=== PATIENT | male | born 2000 | race Caucasian/White ===

== ENCOUNTER 2024-02-13 08:00 | Outpatient (RCR) | payer OTHER, SELFPAY ==
--- NOTE | 2024-02-13 10:15 | BH.SGPN.GN ---
Behaviors/Verbalizations/Mental Status: [] Eye contact is good. Motor activity is appropriate. Appearance is casual. Speech is Appropriate. Mood is anxious, depressed. Affect is congruent. Thoughts are linear and logical. No evidence of psychosis. Client Response/Progress/Benefit: [] Pt receptive of session, actively engaged throughout AEB taking notes, providing input, and contributing in small group discussion. Appeared to connect with group topic of automatic thoughts and cognitive distortions, as well as the impact of thought patterns on mental health, coping behaviors, and relationships. This particular group is very heavy on psychoeducation and pt appeared to connect with distortions and how they can impact functioning. Identified struggling with disqualifying the positive and mental filter distortions. Pt appeared to benefit from gaining insight on distorted thinking patterns and how this impacts overall mental health. Will continue IOP to stabilize mood, improve ability to function, and prevent decompensation. Narrative Note: []
--- NOTE | 2024-02-13 11:15 | BH.SGPN.GN ---
Behaviors/Verbalizations/Mental Status: []Pt alert and oriented, casually dressed and groomed. Eye contact fair. Motor activity appropriate. Speech within normal limits. Affect constricted, mood dysthymic. Thoughts linear, logical, no signs of hallucinations or delusions. Client Response/Progress/Benefit: [] Pt was an active participant during group discussion. Pt was placed in a smaller group and participated in combatting example distortions with peers. Pt was engaged in the smaller group, participated in group interactions to brainstorm answers, and appeared to be comprehending cognitive distortions. Pt stated could connect with many of the distortions covered in group. Pt stated he has learned from group today sometimes are thoughts are skewed and can make a big impact on own feelings and behaviors. Benefited from gaining further insight and awareness of cognitive distortions as well as practicing ways to reframe and challenge thoughts. Will continue in [facility] tx to improve outlook, increase healthy coping skills, and prevent decompensation.
--- NOTE | 2024-02-13 12:24 | BH.COMM ---
Communication Note Communication with Client Communication Note: Met with patient to complete initial paperwork and risk assessment. Reviewed pre-admission intake. No significant changes. Completed [place] [facility]icide Screening. low to moderate risk. Mediated by recent psych admission. No active SI, plan, or intent. Consulted with Dr. Mcintyre with plan to admit to [facility] with dx F31.9
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
--- NOTE | 2024-02-13 15:36 | BH.MTP ---
Master Treatment Plan Patient Information Program Physician:: Dr. Blanche Mcintyre Primary Therapist:: CHICHO Jensen Psychiatric Diagnoses Psychiatric Diagnoses:: 1. Bipolar 2 disorder (currently depressed) 2. Generalized anxiety disorder 3. Rule out alcohol use disorder Estimated LOS Estimated LOS (in weeks):: 6 Problem/Goal #1 Problem/Goal #1 Stated Goal:: Client will reduce depression, feelings of hopelessness, and low motivation due to Bipolar 2, current depressive episode, through Intensive Outpatient Program. Description of Barriers: Potential barriers include recent alcohol increase prior to starting IOP, limited social support, emotion dysregulation, and distorted thoughts. Functional Impact: The patient is a 23-year-old single, male with a history of bipolar 2 disorder, depression and anxiety who was referred by his mother to the [facility] IOP due to worsening depression for the past 3 or 4 weeks. The patient took a leave of absence from work for the past 2 weeks because he was unable to function at work due to his severe depression. A major stressor is that the patient has a lot of debt from increased spending and past college loans and has been in bankruptcy for the past 2 months. He feels withdrawn from everything, is sleeping about 5 hours a night but takes naps for about 4 hours during the day, down and sad, hopelessness, worthlessness, guilt, anhedonia, decreased appetite, low energy, decreased concentration and passive thoughts of . He also describes episodes of hypomania with the most recent episode in August where he felt on top of the world and spent large amounts of money. He states that 2-3 times a year he gets an episode of hypomania and this has happened about 10 times total in his lifetime and have been going on for about 3 years. He denies suicidal ideation, plan for suicide, homicidal ideation, hallucinations or delusions. He denies any history of self-harm. He is a worrier by nature and avoids socializing sometimes. He denies panic attacks or OCD. He denies any purging or bulimia but he does have a history of anorexia during high school with the lowest weight being about 150 pounds. He has had body image issues since high school but no eating disorder behaviors. He has nightmares on occasion which cause increased anxiety. Objectives Objective #1: Stated Objective: Client will learn and utilize 2-3 healthy coping strategies to manage depressive symptoms, as well as see a reduction in overall depressive sx AEB reduced DSM-5 scores. Interventions: Therapist will utilize CBT techniques to assist client with understanding the connection between thoughts, feelings and behaviors. Education will be provided on behavioral activation. Therapist will assist client in learning internal coping strategies to manage depressive symptoms, along with helping client identify triggers. Discharge Criteria: Client will have achieved this goal when can verbalize and has practiced at least 2 healthy coping strategies that successfully manage depressive symptoms, as well as see a reduction in pt's DSM-5 scores for depression Target Date: 03/30/24 Review Date: 03/07/24 Objective #2: Stated Objective: Client will identify and replace 2-3 negative thinking patterns that reinforce feelings of hopelessness and helplessness. Interventions: Through group and individual therapy sessions client will learn how to identify, challenge, and replace dysfunctional thoughts with positive self-enhancing thoughts. Discharge Criteria: Client will have achieved this goal when can identify at least 2 negative thinking patterns, and replace thoughts with rational thoughts. Target Date: 03/30/24 Review Date: 03/07/24 Problem/Goal #2 Problem/Goal #2 Stated Goal:: Stabilize anxiety level while increasing ability to function on daily basis. Description of Barriers: Potential barriers include recent alcohol increase prior to starting IOP, limited social support, emotion dysregulation, and distorted thoughts. Functional Impact: The patient is a 23-year-old single, male with a history of bipolar 2 disorder, depression and anxiety who was referred by his mother to the [facility] IOP due to worsening depression for the past 3 or 4 weeks. The patient took a leave of absence from work for the past 2 weeks because he was unable to function at work due to his severe depression. A major stressor is that the patient has a lot of debt from increased spending and past college loans and has been in bankruptcy for the past 2 months. He feels withdrawn from everything, is sleeping about 5 hours a night but takes naps for about 4 hours during the day, down and sad, hopelessness, worthlessness, guilt, anhedonia, decreased appetite, low energy, decreased concentration and passive thoughts of . He also describes episodes of hypomania with the most recent episode in August where he felt on top of the world and spent large amounts of money. He states that 2-3 times a year he gets an episode of hypomania and this has happened about 10 times total in his lifetime and have been going on for about 3 years. He denies suicidal ideation, plan for suicide, homicidal ideation, hallucinations or delusions. He denies any history of self-harm. He is a worrier by nature and avoids socializing sometimes. He denies panic attacks or OCD. He denies any purging or bulimia but he does have a history of anorexia during high school with the lowest weight being about 150 pounds. He has had body image issues since high school but no eating disorder behaviors. He has nightmares on occasion which cause increased anxiety. Objectives Objective #1: Stated Objective: Client will identify 2-3 anxiety triggers and 2 coping skills to use when feeling anxious, as well as see a reduction in DSM-5 scores for anxiety. Interventions: Therapist will assist client in exploring what triggers anxiety and teach client coping strategies to effectively manage anxiety symptoms. Discharge Criteria: Client will have met this goal when can identify at least 2 triggers to anxiety and verbalize two healthy ways to cope with feelings of anxiety. Target Date: 03/30/24 Review Date: 03/07/24 Objective #2: Stated Objective: Client will identify 2-3 cognitive distortions that lead to rumination and learn 2-3 ways to manage these thoughts to better manage anxiety as shown by reduced DSM-5 scores for anxiety. Interventions: Therapist will provide education on the most common cognitive distortions and teach client the connection between thoughts, emotions, and feelings. Therapist will assist client in identifying, challenging, and replacing dysfunctional thoughts with positive, more realistic thoughts Discharge Criteria: Pt will be able to identify and begin challenging or replacing distortions that reinforce anxiety. Target Date: 03/30/24 Review Date: 03/07/24
--- NOTE | 2024-02-15 09:00 | BH.SGPN.GN ---
Behaviors/Verbalizations/Mental Status: [] Eye contact good. Motor activity appropriate. Speech within normal limits. Affect congruent, mood depressed. Thoughts linear, logical, no signs of hallucinations or delusions. Reviewed client?s symptom tracker, pt denies SI,?plan, or intent as of 02/15/2024. Client Response/Progress/Benefit: [] Client receptive of session, attentive and willing to process with group. Reports ongoing sx of depression?(3/5) and improving anxiety (1/5) per daily sx tracker. ?Identified mental health ?win as maintaining consistent with his new morning routine, which involves completing the [employer] daily crossword puzzle. Shared this is motivating and challenging which helps to start his day on a productive note. Additional win noted as spending time yesterday doing something hands-on and away from a screen. Described baking bread which he plans to share with his family. Noted this was a nice change compared with some of the other ways he passes time, noting these are often more stagnant activities. Current stressor identified as uncertainty about whether he will return to work or not. Indicated trying to focus on treatment and remind himself he has several weeks to decide on this. Receptive of and appearing to benefit from group support. Recommended continued IOP tx to improve mood stability, promote skill application, well as prevent decompensation. Narrative Note: []
--- NOTE | 2024-02-15 11:10 | BH.SGPN.GN ---
Behaviors/Verbalizations/Mental Status: []Pt alert and oriented, casually dressed and groomed. Eye contact good. Motor activity appropriate. Speech within normal limits. Affect constricted, mood depressed. Thoughts linear, logical, no signs of hallucinations or delusions. Client Response/Progress/Benefit: [] Pt responded well to session, taking notes and participating in worksheet discussion. Pt connected with the discussion on motion vs action steps, and this helped pt learn how to set goals differently. Pt set a goal to decrease tiredness and sleeping too much. Pt identified motion steps including setting an alarm that is out of reach, asking family for support, and having a plan when he wakes up. Pt also made action steps which included turning the lights on when his alarm goes off and staying ?away from my bed.? Appeared to benefit from identifying a small goal to benefit mental health. Pt is to continue IOP to prevent decompensation, gain healthy coping skills, and improve daily functioning. Narrative Note: []
--- NOTE | 2024-02-15 11:20 | BH.NA ---
Physical Data Vital Signs Pulse Rate: 78 Blood Pressure: 135/90 Height/Weight Height: 1.73 m Weight:: 95.254 kg Weight in Pounds: 210.0 lbs Current Medication Compliance Medication Compliance Do you take your medication as prescribed?: Yes Nutritional History Appetite Nutritional Instructions: Describe your appetite:: Fair Additional nutritional information:: Client does report a decrease in his appetite but denies change in weight. Client does have a history of anorexia in high school, but states he has been sure to get enough calories in. Functional Assessment Sleep Pattern Describe any problems with sleeping: Client states he sleeps about 5 hours at a time, but does usually take long naps in the afternoon. Client states he has been sleeping about 12 hours per day total. Sensory/Communication Assess Vision Problems Do you have any vision problems?: Glasses Communication Problems Do you have difficulty understanding what people are saying?: No Medical Problems/History Respiratory Conditions Respiratory: Asthma Pain Assessment Do you have acute or chronic pain?: No Surgical History Surgical History Have you had any surgeries? If so, list type and date:: No Substance Abuse Substance Abuse Please describe substance abuse in the last 30 days:: Client states he drinks usually 3 days per week, 2-3 beers per day. Client denies tobacco, substance or caffeine use. Mental Status Summary Mental Status Significant Findings/Observations on Appearance and Mood:: Client is alert and oriented x 4. Client is casually groomed. Client is cooperative with assessment. Client makes fair eye contact. Client's voice has normal rate and volume. Client has a restricted affect. Client makes logical associations and has normal processing. Client denies delusions/hallucinations. Client denies SI. Suicide Assessment Suicidal Ideation Are you currently or have you been suicidal in the past?: Yes Suicidal Intentional Rating Scale (SIRS): Suicidal thoughts (past) Physician Notification Past Psychiatric History MH Treatment Hx Past Psychiatric Medications:: Prozac - besides the Wellbutrin, Lamictal, Zoloft and Abilify he is currently on Age of first mental health symptoms: Client states he was first on medication for mental health around 16 for depression. Client states he was diagnosed with bipolar disorder around age 19. Describe (age, circumstance, etc) any past hospitalizations: None. Current providers for mental health treatment (counselor, psychiatrist, case management assistant, etc.): psychiatry and counseling via telehealth at [facility] Fall Risk Assessment Age Age: Less than 60 Mental Status Mental Status: Willing & able to ask for assistance when needed Physical Status Physical Status: No problems Impairments Impairments: None Elimination Elimination: Continent AND independent Gait or Balance Gait or Balance: Walks independently Hx of Falls History of falls in the past 6 months: No known history Medications/Substances Psychotropics:: Antidepressants and Antipsychotics Medications/substances used within the past 24 hours or ordered to administer: 1-2 of the medications/substances listed above Total Score Total Points:: 1 RN Summary of Impressions Impressions Recommendations Impressions: Psychiatric Issues: 1. Bipolar 2 disorder (currently depressed) 2. Generalized anxiety disorder 3. Rule out alcohol use disorder Level of Care How do the client's current symptoms and functional deficits support need for this level of care?: Client states he was referred to IOP by his mom for increased depression and anxiety. Client states he feels this episode of depression is worse and lasting longer than episodes he has had in the past. Client reports difficulty doing ADL's due to mental health, anhedonia, and decreased energy. Client reports one big stressor is finances. Client denies SI. IOP will promote gains and prevent further decompensation while providing social support and skills training.
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
--- NOTE | 2024-02-17 09:00 | BH.SGPN.GN ---
Behaviors/Verbalizations/Mental Status: [] Eye contact is good. Motor activity is appropriate. Appearance is casual. Speech is Appropriate. Mood is depressed/anxious. Affect is congruent. Thoughts are linear and logical. No evidence of psychosis. Reviewed daily check in sheet and no reports of suicidal ideations or intent. Client Response/Progress/Benefit: [] Pt participated at times during the group discussion. Attentive. Daily symptom tracker notes 3/5 for depression and /5 for anxiety. Able to identify mental health wins which include accomplishing tasks. Pt shared that he cleaned his room and baked . Utilizing behavioral activation skills such as opposite-action and habit changing which has led to benefits. He shared recent stressors and how they are impacting his thoughts, emotions, and behaviors. Progress noted. Benefited from group support, encouragement, and feedback. Will continue in IOP to prevent decompensation, stabilize mood, and increase healthy coping. Narrative Note: []
--- NOTE | 2024-02-17 10:10 | BH.SGPN.GN ---
Behaviors/Verbalizations/Mental Status: [] Client alert and oriented, casually dressed and groomed. Eye contact good. Motor activity appropriate. Speech within normal limits. Affect congruent, mood euthymic. Thoughts linear, logical, no signs of hallucinations or delusions. Client Response/Progress/Benefit: [] Pt responded well to session AEB sharing and listening attentively to others. Group provided examples of benefits of having social support, including: validation, get assistance, and accountability. Pt also participated in group discussion regarding the barriers to accessing support including examples like: lack of trust, avoidance, and fear of vulnerability. Pt participated in experiential activity illustrating the impact communication, boundaries, and patience play in creating healthy support systems. Pt appeared to benefit from increased knowledge of the benefits of social support and greater self-awareness. Will continue IOP tx amalia ncrease emotional regulation skills, reduce negative self-talk, and improve overall functioning. Narrative Note: []
--- NOTE | 2024-02-17 11:10 | BH.SGPN.GN ---
Behaviors/Verbalizations/Mental Status: [] Client alert and oriented, casually dressed and groomed. Eye contact good. Motor activity appropriate. Speech within normal limits. Affect congruent, mood euthymic. Thoughts linear, logical, no signs of hallucinations or delusions. Client Response/Progress/Benefit: [] pt was an active participant throughout AEB contributing to discussion, providing personal examples, and taking notes. Pt provided input during discussion on the types of support our supports can provide. Pt able to identify current support system and barriers that get in the way of using supports. Pt reported after identifying what type of supports pt receives, pt gained awareness that pt could benefit from more social support. Pt wants to work on reaching out to friends and joining common interest groups. Pt shared this would increase self esteem. Pt seemed to benefit from identifying the type of support pt needs to work on improving. Pt recommended to continue IOP tx to prevent decompensation, reduce isolation, and increase overall functioning. Narrative Note: []
--- NOTE | 2024-02-20 09:00 | BH.SGPN.GN ---
Behaviors/Verbalizations/Mental Status: [] Client alert and oriented, casually dressed and groomed. Eye contact good. Motor activity appropriate. Speech within normal limits. Affect congruent, mood euthymic. Thoughts linear, logical, no signs of hallucinations or delusions. Reviewed client?s symptom tracker, no risk for suicidal ideation, plan, or intent as of 02/20/24 Client Response/Progress/Benefit: [] Client responded well to session, offering ideas to peers and providing encouragement. Client reports feeling calm this morning. Client's wins this morning include getting legal stuff worked that has been going on, taking a weight off of his shoulders. Client also shared starting to play his guitar again which has been a great coping tool for him when dealing with stress. Client indicated that he is still not sure what to do about a job and that is causing some anxious feelings for him. Client appeared to benefit from reflecting on his growth. Client will continue IOP tx as Client continues to struggle with avoidance and negative self talk. Narrative Note: []
--- NOTE | 2024-02-20 10:10 | BH.SGPN.GN ---
Behaviors/Verbalizations/Mental Status: []Eye contact is fair. Motor activity is appropriate. Appearance is causal. Speech is Appropriate. Mood is dysthymic. Affect is constricted. Thoughts are linear and logical. No evidence of psychosis. Client Response/Progress/Benefit: [] Pt was an active participant in group discussion and experiential activity. Attentive during psychoeducation on resilience. Participated during interactive discussion with peers on the definition of resilience. Able to relate experiential activity of group juggle to topics of resilience. Group worked together to identify what can impact one's ability to be resilient which included past experiences, trauma, toxic support system, lack of resources, and current mental/physical health state. Worked well with peers in small group in which they identified factors that contribute to building resilience. Benefited from increased awareness of resilience and the factors that contribute to building resilience. Will continue in IOP to increase consistent use of healthy coping skills, challenge distortions, and prevent decompensation.
--- NOTE | 2024-02-20 11:10 | BH.SGPN.GN ---
Behaviors/Verbalizations/Mental Status: []Pt alert and oriented, neatly dressed and groomed. Eye contact good. Motor activity appropriate. Speech within normal limits. Affect congruent, mood motivated. Thoughts linear, logical, no signs of hallucinations or delusions. Client Response/Progress/Benefit: [] Pt responded well to session AEB completing the resilience worksheet provided. Pt participated in the discussion and worked cooperatively with group to identify strategies to enhance each of the components discussed. Pt reports belief they already use resilience traits of??avoiding seeing crises as insurmountable and keeping things in perspective.? Pt stated they would like to continue to develop resilience trait of ?nurturing a positive view of self and practicing self-care.? Pt seemed to benefit from discussing strategies for improving personal resilience and identifying resilience traits pt already possesses. Will continue IOP tx to prevent decompensation, improve daily functioning, and increase motivation. ??? Narrative Note: []
[2024-02-22 08:42] VITALS: BP 135/90; PULSE 78
--- NOTE | 2024-02-22 09:00 | BH.SGPN.GN ---
Behaviors/Verbalizations/Mental Status: [] Eye contact is good. Motor activity is appropriate. Appearance is casual. Speech is Appropriate. Mood is depressed and anxious. Affect is congruent. Thoughts are linear and logical. No evidence of psychosis. Reviewed daily check in sheet and no reports of suicidal ideations or intent. Client Response/Progress/Benefit: [] Pt participated at times during the group discussion. Attentive. Daily symptom tracker notes /5 for depression and 2/5 for anxiety. Able to identify mental health wins which include more consistently engaging in grounding skills and mindfulness which he reports finding beneficial in calming him when stressed thus far. Additional win noted as successfully attending IOP tx today despite waking up in a low mood. Reports he has been struggling with increased depressive sx and is beginning to fall back into sleeping throughout the day which is his stressor. Pt shared that in the past opposite action has helped but he is finding this to be more difficult presently. Benefited from group support, suggestions, encouragement, and feedback. Will continue in IOP to prevent decompensation, stabilize mood, and increase healthy coping and behavior activation skills. Narrative Note: []
--- NOTE | 2024-02-22 09:12 | BH.MDN ---
Multi-Disciplinary Note Note 30-min Individual: Time Started:: 11:44 Date: 02/22/24 Purpose of session/treatment goals addressed:: Purpose of this session was to begin identifying pt's thoughts and behaviors reinforcing depressive sx. Additional purpose was to create a behavior activation goal. Eye Contact:: Good Motor Activity:: Appropriate Appearance:: Casual Speech:: Appropriate Mood:: Anxious and Depressed Affect:: Congruent Thoughts:: Linear, Logical and No evidence of hallucinations/delusions noted Staff Interventions:: psychoeducation on: (maintenance cycles, introduce behavior activation), CBT techniques, goal setting and taught coping skills Client Response:: Pt receptive of session, actively engaged throughout. Reports connecting with fellow participants in the group and finding information he is learning to be beneficial. Pt noted that IOP tx is the primary motivation for getting out of bed most days, explaining that on the days he is not scheduled for group he often sleeps in until noon or one o?clock. Pt indicates that he would like to be getting up earlier on days he does not come to group but struggles to find the motivation or energy to do so. Shared that in the past when he has had depressive episodes they would last a few weeks and he would begin to feel more motivated and able to begin functioning ago. However, pt stated that this episode is lasting much longer than he is used to with no indication of improved mood or energy levels. Described spending much of his day laying in bed, watching television, or on his computer with little enjoyment. Indicated that since beginning IOP tx, he has started trying to engage in some grounding skills outside which has been helpful. Receptive of psychoeducation on cognitive triangle and maintenance cycles. Pt did well to identify his own thoughts and behaviors reinforcing depression maintenance cycle. Identified a desire to engage in more outdoor activities and guitar, as these are things he has enjoyed in the past. Pt identified a goal to engage in one of these activities daily. Additionally, reports worry about whether or not he will return to his current job is a major contributor to thoughts reinforcing depression. Reports his FMLA will be up in a week and he will have to decide. Did well to begin a decisional balance in session and receptive of completing this for homework to aid in making a more informed decision on his occupational plans. Risks/Concerns:: Denies active suicidal ideations, plan, or intent as of this date 02/22/24 Progress Toward Goals/Plan:: Minimal progress noted. Pt reports connecting well with IOP group materials and fellow participants. He does well to participate and provide supportive feedback in groups sessions. Pt additionally noted that the IOP program is encouraging him to get out of bed earlier as he has been struggling in this area recently. Pt reports ongoing sx of depression including low motivation, anhedonia, and fatigue which have been impacting pt?s functioning and reinforcing depressive sx. Pt receptive of beginning to utilize behavioral activation interventions as well as start an accomplishment log. Pt recommended continued IOP tx to improve mood stability, reduce isolation, and prevent decompensation.
--- NOTE | 2024-02-22 10:10 | BH.SGPN.GN ---
Behaviors/Verbalizations/Mental Status: [] Client alert and oriented, casually dressed and groomed. Eye contact good. Motor activity appropriate. Speech within normal limits. Affect congruent, mood euthymic. Thoughts linear, logical, no signs of hallucinations or delusion Client Response/Progress/Benefit: [] Client was an active participant AEB contributing to discussion, taking notes, and engaging in group activity. Connected with the topic of pitfalls and listened to group discussion on barriers that prevent from choosing a healthier path to mental wellness. Group worked together to identify examples of personal pitfalls which included; isolation, avoidance, making excuses, denial, distortions, and unhealthy coping. Client benefited from group as client learned to better identify potential barriers to improving mental health symptoms. Client will continue IOP tx to prevent decompensation,decrease negative thought patterns, and improve daily functioning. Narrative Note: []
--- NOTE | 2024-02-24 09:33 | BH.COMM ---
Communication Note Communication with Client Communication Note: Pt scheduled for IOP tx on this date however did not show or call to cancel. Attempted to reach out to pt to follow-up, but pt did not answer and voicemail box was full.
--- NOTE | 2024-02-28 09:00 | BH.SGPN.GN ---
Behaviors/Verbalizations/Mental Status: [] Eye contact is good. Motor activity is appropriate. Appearance is casual. Speech is Appropriate. Mood is depressed. Affect is flat. Thoughts are linear and logical. No evidence of psychosis. Reviewed daily check in sheet and no reports of suicidal ideations or intent. Client Response/Progress/Benefit: [] Pt participated when prompted. Attentive. Daily symptom tracker notes 08/08 for depression. Shared with the group increased depression since the weekend. It's hard to get myself to do anything. Low energy and struggle to engage in the day. Feels tired with urge to sleep throughout the day. He was able to sign up for a programing class. 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 Not practicing or attempting skills currently. No progress noted. Benefited from group support, encouragement, and feedback. Will continue in IOP to prevent decompensation, increas healthy coping, and improve functioning. Narrative Note: []
--- NOTE | 2024-02-28 10:10 | BH.SGPN.GN ---
Behaviors/Verbalizations/Mental Status: [] Eye contact is fair. Motor activity is appropriate. Appearance is casual. Speech is Appropriate. Mood is dysthymic. Affect is constricted. Thoughts are linear and logical. No evidence of psychosis. Client Response/Progress/Benefit: [] Pt did well to participate in activity and was engaged and attentive during psychoeducation and interactive discussion on coping skills, why people use unhealthy coping skills, how to replace unhealthy coping skills, and internal vs external coping skills. Attentive as peers came up with list of negative coping skills including not asking for help, avoidance, isolating, sleeping, shopping, substance use, and several others. Pt stated he has used avoidance and isolation as unhealthy coping skills that he recognizes keep him stuck. Group discussed the effects of how negative coping skills can impact mental health in a negative way. Benefited from increased understanding of unhealthy coping skills and the need for developing healthy internal and external coping skills. Will continue in IOP to challenge negative thoughts, increase consistent use of healthy coping skills and prevent decompensation.
--- NOTE | 2024-02-28 11:10 | BH.SGPN.GN ---
Behaviors/Verbalizations/Mental Status: []Pt alert and oriented, casually dressed and groomed. Eye contact good. Motor activity appropriate. Speech within normal limits. Affect congruent, mood depressed. Thoughts linear, logical, no signs of hallucinations or delusions. Client Response/Progress/Benefit: [] Pt responded well to session, taking notes and contributing when prompted. Group discussed the different categories of coping skills which included distraction, emotional release, grounding, self-love, and thought challenging. Pt participated in creating a coping skills ?menu? from the five categories of coping skills. Pt's coping skill menu included: exercise, self-reflecting, puzzles, sticking to a routine, and guided meditation. Appeared to benefit from increasing repertoire of healthy coping skills. Will continue IOP to prevent decompensation, gain healthy coping skills, and improve daily functioning. Narrative Note: []
--- NOTE | 2024-02-29 10:10 | BH.SGPN.GN ---
Behaviors/Verbalizations/Mental Status: [] Client Response/Progress/Benefit: [] Narrative Note: []
--- NOTE | 2024-02-29 11:15 | BH.SGPN.GN ---
Behaviors/Verbalizations/Mental Status: []Eye contact is good. Motor activity is appropriate. Appearance is casual. Speech is Appropriate. Mood is depressed and anxious. Affect is congruent. Thoughts are linear and logical. No evidence of psychosis. Client Response/Progress/Benefit: [] Pt was an active participant in group discussions and activity. Engaged with peers in activity and identifying healthy ways to approach each conflict scenario. Group discussed various conflict resolution skills that can be useful in addressing conflict outside of IOP. Benefited from practicing and learning conflict resolution skills during group activity. Able to identify areas pt wants to work on to improve how pt manages conflict both internally and externally. Expressed wanting to work on their internal conflict by completing a pro/con list regarding his current stressors. Will continue in IOP to stabilize mood, improve application of behavioral activation skills, and prevent decompensation. Narrative Note: []
--- NOTE | 2024-02-29 12:14 | PCM.BH.PN_ITS ---
Progress Note Progress Note: History of Present Illness/Interim History: The patient is a 23-year-old single male with a history of bipolar 2 disorder, depression and anxiety who is seen in follow-up at the [facility]. I last saw the patient 2 weeks ago and at that time due to his rapid cycling history and depression we started weaning the Wellbutrin and increased his Abilify. The patient states that he feels a little more tired and is still depressed but maybe a little less depressed. He is taking less naps now and he no longer has any passive thoughts of . He still endorses sadness, hopelessness, guilt, anhedonia, low energy. He denies any symptoms of hypomania which is with his last episode being in August. He has severe financial stress from increased spending and past college loans and so feels that decreasing his hypomania will help with his spending issues. He denies suicidal ideation, plan for suicide, homicidal ideation, hallucinations or delusions. Current Psychiatric Medications: [] Wellbutrin XL decreased to 300 mg p.o. in the morning 2 weeks ago; Lamictal 150 mg p.o. daily (increased 6 weeks ago); Abilify 7.5 mg p.o. daily (increased from 5 mg 2 weeks ago); Zoloft to 100 mg p.o. daily (started 3 months ago plus). Mental Status Examination: [] The patient is a 23-year-old male who appears normal for stated age and wears glasses and is casually dressed and groomed with good hygiene. He has no psychomotor agitation or retardation and is ambulatory with a normal gait. He is cooperative during the interview. Speech is normal rate and rhythm and fluent with no pressure and eye contact is good. Mood is depressed and anxious. Affect is mildly constricted. Thought process is goal-directed and organized. Thought content: There is no longer any evidence of passive thoughts of but there is evidence still of financial worry. There is no evidence of suicidal ideation, plan for suicide, homicidal ideation, hallucinations or delusions. Reality testing is intact. Judgment is intact. Insight is limited but some present. Impulsivity is moderate. Diagnoses: [] 1. Bipolar 2 disorder (currently depressed) 2. Generalized anxiety disorder 3. Rule out alcohol use disorder Plan: [] The patient will continue the [facility] and behavioral health as the structure, support, education and group therapy will hopefully prevent worsening of the patient's symptoms. He felt safe during the interview and if it anytime he does not feel safe he agrees to let us know or go to the emergency room. The risk, options, possible complications and side effects of the medications were again discussed with the patient and he understands accepts these. We discussed again that he is rapid cycling at about 7 episodes a year of depression and hypomania total and since he is not responding to the high doses of Wellbutrin we have decided to wean the Wellbutrin slowly and slowly increase his Abilify to help with his bipolar depression and to decrease his rapid cycling. He agrees to decrease his Wellbutrin XL now to 150 mg p.o. every morning and to increase his Abilify to 10 mg p.o. nightly. His Zoloft and Lamictal will remain the same unchanged. He will continue to follow-up with his outpatient providers and I will see the patient in follow-up in 2 weeks.
--- NOTE | 2024-03-02 09:00 | BH.SGPN.GN ---
Behaviors/Verbalizations/Mental Status: [] Eye contact is good. Motor activity is appropriate. Appearance is disheveled. Speech is Appropriate. Mood is depressed. Affect is flat. Thoughts are linear and logical. No evidence of psychosis. Reviewed daily check in sheet and no reports of suicidal ideations or intent. Client Response/Progress/Benefit: [] Pt participated at times during the group discussion. Attentive. Daily symptom tracker notes /5 for depression and /5 for anxiety. Reports feeling low-eagle frustration due to his limited progress in IOP. Reports low energy, hopelessness, and is struggling to functioning daily due to mental health. Great deal of isolation, avoidance, and sleeping to escape. He is attempting to utilizing behavioral activation (cooked a meal, trying to learn language) however is struggling to see how forcing himself to complete tasks is beneficial. Peers discussed the concepts and research behind behavioral activation we as well as the myth that energy will magically occur w/o trying strategies. Limited benefit from group aside form psychoeducation. Will continue in IOP to prevent decompensation, increase healthy coping, and improve functioning. Narrative Note: []
--- NOTE | 2024-03-02 10:13 | BH.SGPN.GN ---
Behaviors/Verbalizations/Mental Status: [] Eye contact is good. Motor activity is appropriate. Appearance is casual. Speech is Appropriate. Mood is depressed and anxious. Affect is congruent. Thoughts are linear and logical. No evidence of psychosis. Client Response/Progress/Benefit: [] Pt was an active participant in group discussions. Attentive during psychoeducation on the 4 communication styles (Passive, Passive-Aggressive, Aggressive, and Assertive) and the obstacles to effective communication. ?Self-identified a barrier they personally struggle with as communicating indirectly or being vague with their communication. Contributed during interactive discussion on the benefits of communicating effectively which included; having one's needs met, building connection with others, decreases stress and uncertainty, improved relationships, healthier boundaries, and increased understanding of others. Worked well in small group in which pt and peers identified the benefits and disadvantages to the different communication styles. Benefited from increased understanding of communication styles and how these can impact effective communication. Will continue in IOP to prevent decompensation, improve mood stability and application of behavioral activation skills, and improve functioning. Narrative Note: []
--- NOTE | 2024-03-02 11:10 | BH.SGPN.GN ---
Behaviors/Verbalizations/Mental Status: []Pt alert and oriented, casually dressed. Eye contact fair. Motor activity appropriate. Speech within normal limits. Affect constricted, mood dysthymic. Thoughts linear, logical, no signs of hallucinations or delusions. Client Response/Progress/Benefit: [] Pt responded well to session AEB Pt listening attentively to others and providing input during group discussion on the pay offs and costs of the different communication styles. Pt able to connect how current communication style impacts mental health. Connected with peers? comments about importance of using assertive communication. Pt did well with practicing being assertive in the group activity and worked with group to identify potential skills for improving communication skills. Pt seemed to benefit from increasing awareness of healthy strategies to improve communication. Will continue IOP tx to challenge negative thoughts, increase follow through with goals, and prevent decompensation.
== END 2024-03-05 23:59 ==
LOC: BHIOP 08:00
PROVIDERS: Referring Provider Psychiatry & Neurology Psychiatry; Visit Provider Psychiatry & Neurology Psychiatry
DX: F31.81 Bipolar II disorder (principal); F41.1 Generalized anxiety disorder; Z79.899 Other long term (current) drug therapy
CPT/HCPCS: S9480; 90832; 90834; 90837; 90853

== ENCOUNTER 2024-03-06 08:03 | Outpatient (RCR) | payer OTHER, SELFPAY ==
[2024-03-06 00:47] VITALS: BP 135/90; PULSE 78
--- NOTE | 2024-03-06 09:00 | BH.SGPN.GN ---
Behaviors/Verbalizations/Mental Status: [] Eye contact is good. Motor activity is appropriate. Appearance is casual. Speech is Appropriate. Mood is depressed.. Affect is flat. Thoughts are linear and logical. No evidence of psychosis. Reviewed daily check in sheet and no reports of suicidal ideations or intent. Client Response/Progress/Benefit: [] Pt participated at times during the group discussions. ? It?s been a rough past couple of days?. Reports a ?lack of motivation and will? He is challenging thoughts and attempting behavioral activation however continues to report lack of energy which impacts his mental health and overall functioning. Limited progress. Benefited from group support, encouragement, and feedback. Will continue in IOP to prevent decompensation, stabilize mood, increase healthy coping, and improve functioning. Narrative Note: []
--- NOTE | 2024-03-06 10:15 | BH.SGPN.GN ---
Behaviors/Verbalizations/Mental Status: []Eye contact is good. Motor activity is appropriate. Appearance is casual. Speech is Appropriate. Mood is euthymic and tired. Affect is congruent. Thoughts are linear and logical. No evidence of psychosis. Client Response/Progress/Benefit: [] Pt was engaged and an active participant throughout, providing input and taking notes. Participated throughout interactive discussion on defining anxiety and identifying cognitive and physiological symptoms of anxiety. Group discussed the role of anxiety on isolation, avoidance, and who this emotion impacts their ability to start and complete activities/goals. Pt identified their physical/physiological signs of anxiety (i.e. pacing, shaking, GI issues, and headaches). Pt identified safety behaviors (i,e self-medicating, sleep, and doom scrolling.) Benefited from increased awareness and insight on anxiety and its impact. Will continue in IOP to reduce isolation, improve daily functioning, and increase self-care practices. Narrative Note: []
--- NOTE | 2024-03-06 11:15 | BH.SGPN.GN ---
Behaviors/Verbalizations/Mental Status: []Pt alert and oriented, casually dressed and groomed. Eye contact good. Motor activity appropriate. Speech within normal limits. Affect congruent, mood euthymic. Thoughts linear, logical, no signs of hallucinations or delusions. Client Response/Progress/Benefit: [] Pt was an active participant AEB pt providing input and listening attentively to peers. Attentive during psychoeducation on mindfulness coping skills and their impact on reducing anxiety and improving overall mental health wellness. Group was able to identify self-soothing and mind-based coping skills which included: 5-senses, meditation, deep breathing, TIPP, thought challenging, and progressive muscle relaxation. Pt also participated with peers in practicing mindfulness skills in session including deep breathing. Pt would like to work on using dialectical thinking to manage anxiety. Appeared to benefit from increasing repertoire of anxiety reduction skills. Pt will continue in IOP tx to prevent decompensation, improve daily functioning, and increase self-confidence. Narrative Note: []
--- NOTE | 2024-03-07 08:13 | BH.TPR ---
Treatment Plan Review Demographics Date of Admission:: 02/13/24 Date of Treatment Plan Review:: 03/07/24 Admitting Diagnoses:: 1. Bipolar 2 disorder 2. Generalized anxiety disorder 3. Rule out alcohol use disorder Current Diagnoses:: 1. Bipolar 2 disorder 2. Generalized anxiety disorder 3. Rule out alcohol use disorder Patient Status Patient's Response to Treatment:: Pt has struggled off and on throughout program with consistent attendance due to various reasons, but has recently improved in consistency in the last week. When pt does attend he has been showing increased engagement in group and individual sessions AEB providing contributions to discussions and actively participated in challenging himself and his perspective throughout individual sessions. Status of Current Problems and Symptoms: Client has reported improved mood, decreased anxiety, decreased isolation, and improved daily functioning. Pt stated he has been trying to be more social with his friends and work towards opening up about his mental health with them. Pt has made the decision to reintegrate back into school and the workforce and hoping to apply to a local community college. Pt still reporting moderate depressed symptoms with loss of interest at times and low motivation. Pt has noted progress with his anxiety however which may also contribute to the heightened awareness of depressive sx. Progress Problem #1: Problem Name:: Depression Status of Goals:: Obj 1 - not met, ongoing work encouraged. Client is able to identify healthy coping skills like opposite action, challenging negative thoughts, and being social. Client has reported consistently using these skills which have helped him break his maintenance cycle for depression; however, per pt he struggles with believing his progress is sustainable and fear that depression with be his ?new normal?. Per DSM 5 cross-cutting measure at review client's depression has maintained consistent. Obj 2 - not met. Client is showing progress with increased awareness of negative thoughts, but could benefit from continued work with independently challenging distorted thoughts and replacing mistaken belief patterns. Team Recommendations:: Team recommends client continue current goals and objectives with focus on building confidence, consistently applying skills, and identifying future plans. Problem #2: Problem Name:: Anxiety Status of Goals:: Obj 1 - met, ongoing work encouraged. Client is able to identify anxiety triggers and healthy calming skills like belly breathing, grounding tools, and healthy distractions. Client has reported consistently using these skills which have helped him manage his anxious symptoms in the moment. Per DSM 5 cross-cutting measure at review client's anxiety has decreased by 86%. Obj 2 ? met with continued work encouraged. Client is starting to gain increased awareness of his anxiety triggers and the thought distortions which reinforce anxiety sx. Pt could benefit from continuing to work on improving his thought challenge and reframing skills in the moment. Team Recommendations:: Team recommends client continue current goals and objectives with focus on building confidence, consistently applying skills, and identifying future plans.
--- NOTE | 2024-03-07 14:13 | BH.DR.ITP ---
Initial Treatment Plan Patient Information Visit Information: ADMISSION DATE: EXPECTED LOS: 4-6 weeks Diagnoses:: This treatment plan should have been dictated on February 15, 2024. Problems/Symptoms Problem #1:: Depression Symptom:: Sadness, hypersomnia, isolation, hopelessness, guilt, anhedonia, passive thoughts of Problem #2:: Anxiety Symptom:: Worry, rumination
--- NOTE | 2024-03-08 09:05 | BH.SGPN.GN ---
Behaviors/Verbalizations/Mental Status: [] Pt alert and oriented, casually dressed and groomed. Eye contact good. Motor activity appropriate. Speech within normal limits. Affect congruent, mood depressed. Thoughts linear, logical, no signs of hallucinations or delusions. Reviewed pt?s symptom tracker, no risk for suicidal ideation, plan, or intent 03/07/24 Client Response/Progress/Benefit: []Pt was an active participant in group discussions. Attentive. Able to identify mental health wins including spending time playing [employer] and successfully completing a larger shopping trip. Pt shared that although he has started reengaging in activities he enjoys such as music and cooking, he continues to struggle with finding enjoyment in them. Group provided validation and normalized the process of gradual sx improvement which pt appeared to connect with and benefit from. Shared current stressor as fears that his current state of depression is going to become my new normal. Receptive of support from the group in challenging this and identifying evidence against these thoughts/fears. Benefited from group support, encouragement, and feedback. Will continue in IOP to prevent decompensation, improve daily functioning, and increase self-compassion. Narrative Note: []
--- NOTE | 2024-03-08 10:10 | BH.SGPN.GN ---
Behaviors/Verbalizations/Mental Status: [] Eye contact is good. Motor activity is appropriate. Appearance is casual. Speech is Appropriate. Mood is depressed/irritable. Affect is congruent. Thoughts are linear and logical. No evidence of psychosis. Client Response/Progress/Benefit: [] Pt was an active participate AEB listening attentively to others, participating in group discussions, and taking notes throughout. Participated as the group defined emotion dysregulation and identified ways we can hurt others or sabotage self by not regulating our emotions. Participated with peers to identified ways emotions impact communication which included; shutting down, being irritable/short with others, difficulty focusing/staying on topic, confusion, zone out, and being aggressive or dismissive to others. Participated during group activity. Pt benefited from session by gaining an increased understanding on the importance of managing emotions to improve daily functioning. Will continue IOP tx to prevent decompensation, decrease depression, and improve functioning. Narrative Note: []
--- NOTE | 2024-03-08 11:15 | BH.SGPN.GN ---
Behaviors/Verbalizations/Mental Status: []Pt alert and oriented, casually dressed and fairly groomed. Eye contact fair. Motor activity appropriate. Speech within normal limits. Affect constricted, mood dysthymic. Thoughts linear, logical, no signs of hallucinations or delusions. Client Response/Progress/Benefit: [] Pt engaged in session AEB Pt listening attentively to peers and providing input. Attentive during psychoeducation on 4 zones of regulation. Pt able to identify feelings and behaviors for each zone. Pt identified coping skills one can use to support self in each zone. Pt stated he is most often in the blue zone which reinforces his depressed mood. Pt reported skills he wants to work on to help manage emotions in each zone include listening to energetic music, making a list of things he enjoys, and guided meditation. Benefited from increased education on zones of regulation or stages of alertness for emotions and healthy coping skills to use for each zone. Will continue IOP tx to improve consistent healthy coping skills, challenge distorted thoughts, and prevent decompensation.
--- NOTE | 2024-03-09 09:00 | BH.SGPN.GN ---
Behaviors/Verbalizations/Mental Status: [] Eye contact is good. Motor activity is appropriate. Appearance is casual. Speech is Appropriate. Mood is depressed/irritable. Affect is congruent. Thoughts are linear and logical. No evidence of psychosis. Reviewed daily check in sheet and no reports of suicidal ideations or intent. Client Response/Progress/Benefit: [] Pt participated at times during the group discussions. Attentive. Daily symptom tracker notes 09/08 for anxiety. Emotion for today is irritable. Pt reports struggling with motivation, energy, and functioning which is making him irritable and frustrated with himself. 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 Often discounts his accomplishments. Difficult to see progress due to unrealistic expercations of himself. Progress noted. Benefited from group support, encouragment, and feedback. Will continue in IOP to Narrative Note: []
--- NOTE | 2024-03-09 10:10 | BH.SGPN.GN ---
Behaviors/Verbalizations/Mental Status: []Pt alert and oriented, casually dressed and groomed. Eye contact good. Motor activity appropriate. Speech within normal limits. Affect congruent, mood depressed. Thoughts linear, logical, no signs of hallucinations or delusions. Client Response/Progress/Benefit: [] Pt took notes and contributed to group discussions. Attentive during psychoeducation on growth mindset. Participated during the activity. Interactive group discussion on growth mindset in which group verbalized their current fixed mindsets and how they affect their mental health. Pt shared common fixed mindset thoughts they have which included I'm not good enough; I should be doing more?. These thoughts lead to feeling and staying stuck, not letting supports help or telling them what is going on, and self-criticism. Pt stated they have personally struggled with fixed thoughts causing them to isolate and avoid. Pt benefited from increased awareness of growth mindset and fixed thoughts and how fixed thoughts impact their mental health. Will continue IOP tx to prevent decompensation, improve daily functioning, and promote mood stability. Narrative Note: []
--- NOTE | 2024-03-09 15:13 | BH.MDN_ITS ---
Multi-Disciplinary Note Note 45-min Individual: Time Started:: 11:20 Date: 03/09/24 Purpose of session/treatment goals addressed:: Purpose of session is to work on treatment plan goal #1, specifically focusing on addressing negative thinking patterns reinforcing depressive sx. Eye Contact:: Good (tearful) Motor Activity:: Appropriate Appearance:: Casual Speech:: Appropriate Mood:: Depressed Affect:: Congruent Thoughts:: Linear, Logical and No evidence of hallucinations/delusions noted Staff Interventions:: thought challenging, psychoeducation on: (gratitude, mistaken beliefs), CBT techniques and strengths perspective Client Response:: Pt receptive of session, actively engaged throughout. Reports the past week has been ?a little tough? as he has felt more physically tired than usual. Noted beliefs this is due to his body still adjusting to his medication changes, but has felt less motivated as a result of fatigue. Shared that despite his fatigue and waning motivation, he was still able to follow- through with several of the behavioral activation goals set in last session. Pt explained that he has successfully been able to engage in at least 1 learning activity (such as his programing course, language development, or learning a new guitar song) daily for the past week. Reports that prior to doing so, he often struggles with reluctance and thoughts of ?what?s the point?. Afterward pt expressed feeling some sense of accomplishment, however does continue to struggle with giving himself credit. Receptive of beginning to keep a log of his daily activities to look back on each day in order to reflect on and acknowledge his daily accomplishments. Worked with therapist to challenge thoughts of not deserving credit for things he feels are not ?enough of an accomplishment?. Went on to describe struggling much of his life with a more negative or pessimistic mindset. Able to recognize the impact his default mindset has on reinforcing depressive sx. Receptive of psychoeducation on gratitude and applying gratitude practices to treatment of depression. Pt reports seeing some benefit in using gratitude to challenge perspective, but also expressed fear this will result in feelings of guilt for not previously being more appreciative. Worked with therapist to address these concerns and identify strategies for practicing gratitude without negating one?s pain or fueling guilt. Pt reports willingness to try beginning a daily gratitude journal. Risks/Concerns:: None noted, pt denies SI, plan, or intent as of this date. Progress Toward Goals/Plan:: Progress variable. Pt reports successful completion onf behavioral activation goals to begin engaging in activities he enjoys and connect with pt?s personal values. Noted finding some benefit but continues to struggle with not giving himself credit, self-critical comparisons, and fear that treatment wont work which reinforces sx. Pt has attended IOP groups as scheduled this week which is progress compared with the previous week. He continues to report feelings of guilt and shame surrounding his mental health struggles which keeps him isolated from friends who are supports. Pt recommended continued IOP tx to improve mood stability, reduce self-deprecation and improve confidence, as well as prevent decompensation. Time Stopped:: 12:04
--- NOTE | 2024-03-12 09:00 | BH.SGPN.GN ---
Behaviors/Verbalizations/Mental Status: []Pt alert and oriented, neatly dressed and groomed. Eye contact good. Motor activity appropriate. Speech within normal limits. Affect congruent, mood lost. Thoughts linear, logical, no signs of hallucinations or delusions. Reviewed pt?s symptom tracker, no risk for suicidal ideation, plan, or intent 03/12/24. Client Response/Progress/Benefit: []Pt was an active participant in group discussions. Attentive. Able to identify mental health wins including working on his gratitude journal and allowing himself to cry this weekend. Pt shared he usually suppresses his emotions, but he allowed himself to feel which was cathartic. Pt's stressor today is that he is unsure about his future and what he wants to do for a job, so pt feels lost this morning. Pt receptive to feedback from peers which pt reported was helpful. Progress noted. Benefited from group support, encouragement, and feedback. Will continue in IOP to reduce isolation, improve daily functioning, and increase self-confidence. Narrative Note: []
--- NOTE | 2024-03-12 10:15 | BH.SGPN.GN ---
Behaviors/Verbalizations/Mental Status: []Pt alert and oriented, casually dressed and groomed. Eye contact good. Motor activity appropriate. Speech within normal limits. Affect congruent, mood calm. Thoughts linear, logical, no signs of hallucinations or delusions. Client Response/Progress/Benefit: [] Pt was attentive during psychoeducation and participated in group activity. Group discussed what contributes to a person?s perspective and how perspective can positively or negatively impact mental health treatment. Pt reflected on their perspective today and how it is impacting them. Pt shared their perspective today is being mostly positive about IOP helping him and shared that this leads to pt wanting to continue trying. ?Pt appeared to benefit from increasing awareness of different perspectives and how they can affect mental health. Pt will continue IOP tx to prevent decompensation, improve daily functioning, and increase use of healthy coping skills. ? Narrative Note: []
--- NOTE | 2024-03-12 11:10 | BH.SGPN.GN ---
Behaviors/Verbalizations/Mental Status: []Pt alert and oriented, casually dressed and groomed. Eye contact fair. Motor activity appropriate. Speech within normal limits. Affect constricted, mood dysthymic. Thoughts linear, logical, no signs of hallucinations or delusions. Client Response/Progress/Benefit: []Pt was attentive and contributed to group discussion. Pt worked with group to identify strategies that can help with challenging negative perspective. Pt stated he can remind self that things take time as a way to challenge negative perspective. Pt completed strengths exploration worksheet, identifying his personal strengths. Pt able to acknowledge how these strengths are helping pt and can continue to help pt in mental health journey. Pt identified wanting to work on leaning on strength of open mindedness by practicing skills of gratitude and opposite action. Benefited from identifying personal strengths and strategies for enhancing use of identified strengths. Pt will continue IOP tx to continue practicing healthy coping skills, increase follow through on skills, and prevent decompensation.
--- NOTE | 2024-03-12 11:12 | BH.SGPN.GN ---
Behaviors/Verbalizations/Mental Status: [] Client alert and oriented, casually dressed and groomed. Eye contact good. Motor activity appropriate. Speech within normal limits. Affect congruent, mood euthymic. Thoughts linear, logical, no signs of hallucinations or delusions. Client Response/Progress/Benefit: [] Client responded well to session, attentive. Did well to process activity and work with group to relate the strategies used to overcome barriers in the activity to managing change in own life. Client identified a change would like to make is to start a new job. Client stated currently in contemplation stage. Reported goal of wanting to research jobs each day. Appeared to benefit from identifying a small goal to work towards. Client will continue IOP tx to increse self care and improve daily functioning. Narrative Note: []
--- NOTE | 2024-03-15 09:00 | BH.SGPN.GN ---
Behaviors/Verbalizations/Mental Status: [] Eye contact is good. Motor activity is appropriate. Appearance is casual. Speech is Appropriate. Mood is depressed. Affect is congruent. Thoughts are linear and logical. No evidence of psychosis. Reviewed daily check in sheet and no reports of suicidal ideations or intent. Client Response/Progress/Benefit: [] Pt participated when prompted. Attentive. He is struggling to complete tasks and utilizing behavioral activation however is trying. Attempting to focus on himself however does not see progress. Group was able to reframe and point out progress pt is making which was beneficial. Will continue in IOP to prevent decompensation, stabilize mood, and improve functioning. Narrative Note: []
--- NOTE | 2024-03-15 10:15 | BH.SGPN.GN ---
Behaviors/Verbalizations/Mental Status: [] Pt alert and oriented, appropriate grooming/appearance. Eye contact good. Motor activity appropriate. Speech within normal limits. Affect congruent, mood dysthymic. Thoughts linear, logical, no signs of hallucinations or delusions. Client Response/Progress/Benefit: [] Pt was an active participant in group discussions. Attentive during psychoeducation. Contributed during interactive discussions in which peers attempted to define crisis. Group identified examples of potential crisis. Group also worked together to identify unhealthy responses to crisis which included lashing out, isolation, self-harm, and distraction. Pt identified personal warning signs for crisis as isolating, sleep, lack of self-care, and loss of interest. Benefited from increased understanding of crisis and awareness of personal responses to crisis. Pt will continue IOP tx to increase functioning and prevent decompensation. Narrative Note: []
--- NOTE | 2024-03-15 11:15 | BH.SGPN.GN ---
Behaviors/Verbalizations/Mental Status: []Pt alert and oriented, appropriate grooming/appearance. Eye contact fair. Motor activity appropriate. Speech within normal limits. Affect congruent, mood euthymic. Thoughts linear, logical, no signs of hallucinations or delusions. Client Response/Progress/Benefit: []Pt was an active participant in group discussions. Attentive during psychoeducation. In small group pt along with peers developed an active plan for their crisis warning signs. Pt identified three crisis warning signs as well as an action plan for each. One crisis warning sign was increased sleeping/feeling tired. Pt identified coping skills to help with this such as: making bed in morning, keeping lights on and blinds open, and go for a walk. ?Benefited from increased awareness of crisis warning signs and by developing crisis intervention strategies. Will continue in IOP to increase consistent use of healthy coping skills, challenge distorted thoughts, and prevent decompensation.
--- NOTE | 2024-03-16 10:10 | BH.SGPN.GN ---
Behaviors/Verbalizations/Mental Status: [] Pt alert and oriented, casually dressed and groomed. Eye contact good. Motor activity appropriate. Speech within normal limits. Affect congruent, mood dysthymic. Thoughts linear, logical, no signs of hallucinations or delusions. Client Response/Progress/Benefit: [] Pt participated during small group discussions. Attentive during psychoeducation about defense mechanisms. Showed engagement during small group discussions and helped group identify which defense mechanisms were maladaptive, adaptive, or ?somewhere in the cab[place].? Noted he struggles with denial, suppression, and humor defense mechanisms. Pt worked with small group on identifying how each defense mechanism can impact mental health and gave examples. ?Seemed to benefit from gaining awareness about the different defense mechanisms. Pt to continue IOP tx to prevent decompensation, stabilize mood, and improve functioning to return to work. Narrative Note: []
--- NOTE | 2024-03-16 11:10 | BH.SGPN.GN ---
Behaviors/Verbalizations/Mental Status: []Pt alert and oriented, casually dressed and groomed. Eye contact good. Motor activity appropriate. Speech within normal limits. Affect congruent, mood euthymic. Thoughts linear, logical, no signs of hallucinations or delusions. Client Response/Progress/Benefit: []Pt responded well to session, participating in activity and small group discussion. Group reviewed the rest of the defense mechanisms and discussed how these are adaptive, maladaptive, or somewhere in the [place]. Pt participated in the experiential activity which encouraged pts to draw a castle that portrayed their different defense mechanisms. Pt's defense mechanisms included humor, suppression, rationalization, and anticipation. Pt shared wanting to work on reducing their suppression as pt feels they do not allow themselves to feel. Pt listened to case checker teach different skills to help pt?s cope with or change their defense mechanisms. Pt appeared to benefit from gaining insight to the different defense mechanisms and learning coping skills. Pt will continue IOP tx to promote mood stability, increase healthy coping skills, and reduce negative thoughts. Narrative Note: []
--- NOTE | 2024-03-19 09:00 | BH.SGPN.GN ---
Behaviors/Verbalizations/Mental Status: [] Eye contact is good. Motor activity is appropriate. Appearance is casual. Speech is Appropriate. Mood is euthymic. Affect is full. Thoughts are linear and logical. No evidence of psychosis. Reviewed daily check in sheet and no reports of suicidal ideations or intent. Client Response/Progress/Benefit: [] Pt participated at times during the group discussion. Attentive. Daily symptom tracker notes 06/10 for depression and anxiety. ? I?m feeling good today?. ? This is the lightest I?ve felt in awhile?. Beginning to see more consistent benefit from behavior activation and skills. He is mainly anxious about his future and has begun to look for part-time jobs. Progress noted. Benefited from group support, encouragement, and feedback. Will continue in IOP to prevent decompensation, stabilize mood, and improve functionoing. Narrative Note: []
--- NOTE | 2024-03-19 10:10 | BH.SGPN.GN ---
Behaviors/Verbalizations/Mental Status: [] Client alert and oriented, casually dressed and groomed. Eye contact good. Motor activity appropriate. Speech within normal limits. Affect congruent, mood euthymic. Thoughts linear, logical, no signs of hallucinations or delusions. Client Response/Progress/Benefit: [] Client responded well to session, contributing to discussion and engaged during the activity. Group identified the benefits of change which included: better mental health, increased confidence, and improved relationships. Worked with the group to identify barriers to change, which included: uncomfortable emotions such as anxiety, lack of motivation,fear of failure, disappointing others, and loss of momentum. Client discussed fear of disappointing those around him when making change. Client participated along with group in activity where they identified and discussed the emotions related to change.. Benefited from increased awareness and understanding of emotions, benefits, and barriers related to change. Will continue IOP tx to continue to increase overall functioning and promote healthy thought patterns. Narrative Note: []
--- NOTE | 2024-03-21 09:05 | BH.SGPN.GN ---
Behaviors/Verbalizations/Mental Status: [] ?Pt alert and oriented, casually dressed and groomed. Eye contact good. Motor activity appropriate. Speech within normal limits. Affect congruent, mood content. Thoughts linear, logical, no signs of hallucinations or delusions. Reviewed pt?s symptom tracker, no risk for suicidal ideation, plan, or intent 03/21/24 Client Response/Progress/Benefit: []Pt receptive of session, engaged throughout and appearing to benefit from group support and encouragement. Identified current mental health wins as using opposite action to exercise this week for the first time in [facility]. Additional noted as submitting his application for a local [employer]. Shared feeling accomplished and excited, but this is also his stressor as he fears judgement about returning to school after dropping out. Did well to work with group on challenging these thoughts and reflecting on evidence to the contrary. Benefited from group supportive feedback, encouragement, and support. Recommended continued IOP tx to prevent decompensation, improve mood stability, and promote skill application. Narrative Note: []
--- NOTE | 2024-03-21 11:15 | BH.SGPN.GN ---
Behaviors/Verbalizations/Mental Status: [] Pt alert and oriented, casually dressed and groomed. Eye contact fair. Motor activity appropriate. Speech within normal limits. Affect congruent, mood euthymic, Thoughts linear, logical, no signs of hallucinations or delusions Client Response/Progress/Benefit: [] Client responded well to session, engaged and taking notes throughout. Worked with group to connect components of the experiential activity with characteristics of healthy and unhealthy relationships. Attentive during psychoeducation about characteristics of healthy, unhealthy, and abusive relationships. Client reported he would like to continue to improve with communication in relationships. Appeared to benefit from identifying current healthy relationship attributes and an area client wants to work on to build healthier relationships. Client to continue IOP to promote healthy coping skills, challenge negative thoughts, and prevent decompensation.
--- NOTE | 2024-03-21 11:20 | PCM.BH.PN_ITS ---
Progress Note Progress Note: History of Present Illness/Interim History: The patient is a 23-year-old single, male with a history of bipolar 2 disorder, depression and anxiety who is seen in follow-up at the [facility] behavioral [facility]. I last saw the patient 3 weeks ago and at that time we decreased his Wellbutrin XL to decrease his rapid cycling and we increased his Abilify. The patient states that his mood has been better in the last week or so and he has only occasional sadness lately. He denies any hopelessness now but still has some guilt and low energy. His financial situation remains a significant source of stress but he has been able to try playing the [employer] and watching lectures for his [employer] class. He feels he is benefiting from the program and learning valuable skills to help manage his mental health issues. He denies symptoms of hypomania, passive thoughts of , suicidal ideation, plan for suicide, homicidal ideation, hallucinations or delusions. Current Psychiatric Medications: [] Wellbutrin XL 150 mg p.o. every morning (decreased 2 weeks ago); Lamictal 150 mg p.o. daily; Abilify 10 mg p.o. daily (increased 2 weeks ago); Zoloft 100 mg p.o. daily. Mental Status Examination: [] The patient is a 23-year-old male who wears glasses and appears normal for stated age and is ambulatory with a normal gait. He is casually dressed and groomed with good hygiene and has no psychomotor agitation or retardation. He is cooperative during the interview. Eye contact is good and speech is normal rate and rhythm and fluent with no pressure. Mood is mildly depressed. Affect is mildly constricted. Thought process is goal-directed and organized. Thought content: There is no evidence of passive thoughts of , suicidal ideation, plan for suicide, homicidal ideation, hallucinations or delusions. There is still evidence of financial worry. Reality testing is intact. Judgment is intact. Insight is fair. Impulsivity is moderate. Diagnoses: [] 1. Bipolar 2 disorder 2. Generalized anxiety disorder 3. Rule out alcohol use disorder Plan: [] The patient will continue the [facility] and behavioral health as the structure, support, education and group therapy have benefited him. He felt safe during the interview and if it anytime he does not feel safe he agrees to let us know or go to the emergency room. No medication changes were made today as the patient feels this is a good regimen for him and it will take several months to see if his rapid cycling decreases. He will continue to follow-up with his outpatient providers and I will see the patient in follow-up while he is in the IOP.
--- NOTE | 2024-03-23 09:05 | BH.SGPN.GN ---
Behaviors/Verbalizations/Mental Status: [] Eye contact is good. Motor activity is appropriate. Appearance is casual. Speech is Appropriate. Mood is anxious. Affect is congruent. Thoughts are linear and logical. No evidence of psychosis. Reviewed daily check in sheet and no reports of suicidal ideations or intent. Client Response/Progress/Benefit: [] Pt was an active participant in group discussions. Attentive. Emotion for today is ?uncertain?. He is uncertain about his future, his ability to find a part-time job, and his overall mental health. The group normalized his anxiety and provided support/feedback which was beneficial. Will continue in IOP to prevent decompensation, increase health coping, and improve functioning. Narrative Note: []
--- NOTE | 2024-03-23 10:15 | BH.SGPN.GN ---
Behaviors/Verbalizations/Mental Status: [] Eye contact is good. Motor activity is appropriate. Appearance is casual. Speech is Appropriate. Mood is content. Affect is congruent. Thoughts are linear and logical. No evidence of psychosis. Client Response/Progress/Benefit: [] Pt engaged participant AEB listening to others, engaging in activity, and providing feedback at times. Attentive during psychoeducation and provided insight into obstacles that impede mental wellness. Pt shared with group current mental health reality and desired mental health reality, noting that he feels like he is climbing a mountain without climbing gear or support. Desires more coping tools and connection with supports who understand. Identified barriers to desired reality include: self-doubt, fear of failure, and isolation. Benefited from taking look at current mental health state and obstacles for progress. Pt to continue IOP tx to decrease avoidance, improve thought challenging skill application, and prevent decompensation. Narrative Note: []
--- NOTE | 2024-03-23 11:15 | BH.SGPN.GN ---
Behaviors/Verbalizations/Mental Status: []Eye contact is good. Motor activity is appropriate. Appearance is neat. Speech is Appropriate. Mood is euthymic. Affect is congruent. Thoughts are linear and logical. No evidence of psychosis. Client Response/Progress/Benefit: []Pt was an engaged participant in group discussion and activity. Worked with group to identify strategies to help overcome barriers and obstacles to desired reality. Group developed strategies for the common barriers. Identified personal barriers to desired reality and choose one obstacle to work. Pt stated pt wants to work on barrier of fear of failure by catching his catastrophizing thoughts and reminding himself ?it?s not the end of the world.? Pt seemed to benefit from increased repertoire of healthy coping skills/strategies to overcome common barriers to moving forward. Pt is to continue IOP to promote mood stability, reduce negative self-talk, and increase motivation. ? Narrative Note: []
--- NOTE | 2024-03-26 09:05 | BH.SGPN.GN ---
Behaviors/Verbalizations/Mental Status: [] Eye contact is good. Motor activity is appropriate. Appearance is casual. Speech is Appropriate. Mood is euthymic. Affect is full. Thoughts are linear and logical. No evidence of psychosis. Reviewed daily check in sheet and no reports of suicidal ideations or intent. Client Response/Progress/Benefit: [] Pt was an active participant in group discussions. Attentive. ? I?m doing pretty well?. Increase confidence due to following through with a lengthy and stressful responsibility over the weekend. Continues to apply for jobs as he is coming closer to discharging form [facility]. Emotion for today is ?content?. Comments that he has felt improved stability and feels more hopeful in the past week. Progress noted. Benefited from group support, encouragement, and feedback. Will continue??in IOP to maintain gains, prevent decompensation, and improve functioning. Narrative Note: []
--- NOTE | 2024-03-26 10:15 | BH.SGPN.GN ---
Behaviors/Verbalizations/Mental Status: []Eye contact is good. Motor activity is appropriate. Appearance is casual. Speech is Appropriate. Mood is calm. Affect is congruent. Thoughts are linear and logical. No evidence of psychosis. Client Response/Progress/Benefit: [] Pt participated, AEB taking notes and providing input in group discussion when prompted. Attentive during psychoeducation. Pt engaged during interactive discussion in which the group defined self-care and discussed its benefits. Group discussed barriers to engaging in self-care. Group members together came up with not having time, it being selfish, not feeling like they deserve it, and not having energy. Pt stated their personal barrier is feeling like he does not have the energy to do it. Pt participated in small groups where they worked to identified and challenged common self-care ?myths?. Benefited from increased awareness of self-care, its benefits, and the consequences of not utilizing self-care strategies. Will continue IOP tx to promote mood stability, reduce negative thinking patterns, and improve daily functioning. ? Narrative Note: []
--- NOTE | 2024-03-26 11:15 | BH.SGPN.GN ---
Behaviors/Verbalizations/Mental Status: []Eye contact is good. Motor activity is appropriate. Appearance is casual. Speech is Appropriate. Mood is euthymic. Affect is congruent. Thoughts are linear and logical. No evidence of psychosis. Client Response/Progress/Benefit: []Pt engaged in discussion reviewing different areas of self-care and completing self-assessment of current self-care, as well as providing input throughout discussion. Did well to complete self-care self-assessment worksheet. Pt identified current self-care practices and what self-care activities Pt wants to start using. Pt selected professional self-care as the area pt wants to do more frequently and pt will do this by taking a course in something he enjoys. Appeared to benefit from completing the self-care evaluation and gaining insights into current self-care practices, as well as identifying areas in which Pt would like to improve upon. Pt will continue IOP tx to promote mood stability, increase self-confidence, and improve daily functioning. Narrative Note: []
--- NOTE | 2024-03-28 09:05 | BH.SGPN.GN ---
Behaviors/Verbalizations/Mental Status: [] Eye contact is good. Motor activity is appropriate. Appearance is casual. Speech is Appropriate. Mood is euthymic. Affect is full. Thoughts are linear and logical. No evidence of psychosis. Reviewed daily check in sheet and no reports of suicidal ideations or intent. Client Response/Progress/Benefit: [] Pt was an active participant in group discussions. Attentive. Identified a significant win which was that he drove himself to IOP today. Increased energy, engagement, and motivation. Completing tasks recently to help with the process of ?going back to school?. Progress noted. Anxiety??related to this being his last week of IOP. Will continue in IOP to maintain gains.Benefited from group support, encouragment, and feedback. Will continue in IOP to prevent decompensation, increase healthy coping, and improve functioning. Narrative Note: []
--- NOTE | 2024-03-28 10:10 | BH.SGPN.GN ---
Behaviors/Verbalizations/Mental Status: [] Client alert and oriented, casually dressed and groomed. Eye contact fair. Motor activity appropriate. Speech within normal limits. Affect congruent, mood euthymic. Thoughts linear, logical, no signs of hallucinations or delusions. Client Response/Progress/Benefit: [] Pt responded well to session AEB sharing and listening attentively to others. Group provided examples of benefits of having social support, including: validation, get assistance, and accountability. Pt also participated in group discussion regarding the barriers to accessing support. Pt shared personal barriers to support include: fear of judgement, self-doubt, and assuming others are too busy. Pt participated in experiential activity illustrating the impact communication, boundaries, and patience play in creating healthy support systems. Pt appeared to benefit from increased knowledge of the benefits of social support and greater self-awareness. Pt to continue IOP to promote healthy coping skills, challenge distortions, and prevent decompensation.
--- NOTE | 2024-03-28 11:15 | BH.SGPN.GN ---
Behaviors/Verbalizations/Mental Status: []Client alert and oriented, casually dressed and groomed. Eye contact good. Motor activity appropriate. Speech within normal limits. Affect congruent, mood euthymic. Thoughts linear, logical, no signs of hallucinations or delusions. Client Response/Progress/Benefit: [] Pt participated throughout AEB contributing to discussion, providing personal examples, and taking notes. Pt provided input during discussion on the types of support our supports can provide. Pt able to identify current support system and barriers that get in the way of using supports. Pt reported after identifying what type of supports pt receives, pt gained awareness that pt could benefit from more social support. Pt recognizes that he will be able to do this more if he decides to go back to school. Pt seemed to benefit from identifying the type of support pt needs to work on improving. Pt recommended to continue IOP tx to promote mood stability, reduce negative thinking patterns, and reinforce healthy coping skills. Narrative Note: []
--- NOTE | 2024-03-30 09:00 | BH.SGPN.GN ---
Behaviors/Jun ?Pt alert and oriented, casually dressed and groomed. Eye contact good. Motor activity appropriate. Speech within normal limits. Affect congruent, mood content. Thoughts linear, logical, no signs of hallucinations or delusions. Reviewed pt?s symptom tracker, no risk for suicidal ideation, plan, or intent 03/30/24 Client Response/Progress/Benefit: [] Pt was an active participant in group discussions. Attentive. Able to identify mental health wins including today being his last day in IOP tx and feeling he has made much progress. Pt reflected on several areas he has seen improvement including increased motivation and positive self-talk. Additional win noted as taking time to moisturize. Stressor noted as seeing more trash outside than he has previously and worrying about the planet. Identified use of grounding and processing with a support. Benefited from group support, encouragement, and feedback. Will continue in outpatient counseling to prevent decompensation and maintain gains. Narrative Note: []
--- NOTE | 2024-03-30 10:13 | BH.SGPN.GN ---
Behaviors/Verbalizations/Mental Status: [] Eye contact is good. Motor activity is appropriate. Appearance is casual. Speech within normal limits. Mood is euthymic. Affect is congruent. Thoughts are linear and logical. No evidence of psychosis. Client Response/Progress/Benefit: [] Client was an active participant in group discussion and experiential activity. Attentive during psychoeducation on resilience. Participated in interactive discussion with peers on the definition of resilience and where it comes from. Group identified that resiliency can be impacted by; past experiences, upbringing, and current mental health state. Group also worked together to identify the benefits of being resilient and how it is related to mental health. Able to relate experiential activity of group juggle to topics of resilience. Worked well with peers in small group in which they identified factors that contribute to resilience. Benefited from increased awareness of resilience and the factors that contribute to building resilience. Client discharging today from program successfully. Narrative Note: []
--- NOTE | 2024-03-30 14:50 | BH.DS ---
Discharge Summary Demographics Date of Admission:: 02/13/24 Discharge Date: 03/30/24 Presenting Problems at Admission:: The patient is a 23-year-old single, male with a history of bipolar 2 disorder, depression and anxiety who was referred by his mother to the [facility] due to worsening depression for the past 3 or 4 weeks. The patient took a leave of absence from work for the past 2 weeks because he was unable to function at work due to his severe depression. A major stressor is that the patient has a lot of debt from increased spending and past college loans and has been in bankruptcy for the past 2 months. He feels withdrawn from everything, is sleeping about 5 hours a night but takes naps for about 4 hours during the day, down and sad, hopelessness, worthlessness, guilt, anhedonia, decreased appetite, low energy, decreased concentration and passive thoughts of . He also describes episodes of hypomania with the most recent episode in August where he felt on top of the world and spent large amounts of money. He states that 2-3 times a year he gets an episode of hypomania and this has happened about 10 times total in his lifetime and have been going on for about 3 years. He denies suicidal ideation, plan for suicide, homicidal ideation, hallucinations or delusions. He denies any history of self-harm. He is a worrier by nature and avoids socializing sometimes. He denies panic attacks or OCD. He denies any purging or bulimia but he does have a history of anorexia during high school with the lowest weight being about 150 pounds. He has had body image issues since high school but no eating disorder behaviors. He has nightmares on occasion which cause increased anxiety. Discharge Diagnoses:: 1. Bipolar 2 disorder 2. Generalized anxiety disorder 3. Rule out alcohol use disorder Reason for Discharge:: Client has made treatment progress on his goals, feels ready for discharge from [facility], as well as reports improved daily functioning. Treatment Progress During Treatment & Response: Client reported he has seen treatment progress with improved mood, improved use of healthy coping skills to manage anxiety and depression, improved self-compassion and confidence, and improved decreased isolation. Client has also been able to challenge himself to apply to go back to college and was accepted while in the program and is currently looking for part-time employment as well. Client's DSM 5 cross-cutting measure scores at discharge show a decrease in mental health symptom of 58%. Client's depression decreased by 38%, anxiety decreased by 71%, and feelings of detachment have reduced by 50% as well.. Client responded well to IOP AEB consistent IOP attendance, often providing input during group sessions, and engaging in individual therapy. Issues Still to be Addressed:: Client could benefit from continued work on distress tolerance to help manage in the moment stressors. Client will be dealing with ongoing management of his bipolar disorder, so support and skill building on managing added stress, maintaining stability, and managing mary sx could be beneficial. Discharge Recommendations/Instructions:: Client is established and will follow up with psychiatry services telehealth at [facility] and has been provided with a list of referrals for outpatient counseling services however pt not yet chosen which agency he would like to establish with. Discharge Handout
== END 2024-03-30 12:33 | disposition home or self-care (01) ==
LOC: BHIOP 08:03
PROVIDERS: Referring Provider Psychiatry & Neurology Psychiatry; Visit Provider Psychiatry & Neurology Psychiatry
DX: F31.81 Bipolar II disorder (principal); F41.1 Generalized anxiety disorder; Z79.899 Other long term (current) drug therapy
CPT/HCPCS: S9480; 90832; 90834; 90853